=== PATIENT | male | born 1950 | race Caucasian/White ===

== ENCOUNTER → 2022-06-28 09:34 | Outpatient (CLI) | payer OTHER, SELFPAY ==
--- NOTE | 2022-06-28 10:45 | DI.MRI.S_ITS ---
PROCEDURE: MR LUMBAR SPINE WO CON INDICATIONS: lumbar radic Right L4.5 TECHNIQUE: Noncontrast sagittal T1 spin echo and T2 fast echo, sagittal STIR, and T2 fast spin echo through the lumbar spine. In cases with scoliosis, additional coronal T2 fast spin echo may be performed. COMPARISON: None. FINDINGS: Image quality: Excellent. Alignment and Curvature: There is normal bony alignment. Bone Marrow: Degenerative endplate changes. Modic type 1 endplate changes noted L4-5 Spinal Cord: Conus medullaris terminates at the L1 level. Visualized cord demonstrates normal signal and size. Paraspinous Soft Tissues: No paravertebral masses. T12-L1: Normal appearance. L1-L2: Disc space narrowing with circumferential disc bulge and hypertrophic facet joints results in mild central and moderate bilateral foraminal stenosis L2-L3: Disc space narrowing with circumferential disc bulge and hypertrophic facet joints results in moderate central stenosis. Moderate right and severe left foraminal stenosis L3-L4: Disc space narrowing with circumferential disc bulge, hypertrophic facet joints and ligamentum flavum laxity combined result in severe central stenosis. Moderate right and severe left foraminal stenosis L4-L5: Disc space narrowing, circumferential disc bulge and ligamentum flavum laxity combined result in severe central and severe bilateral foraminal stenosis. L5-S1: Disc space narrowing with circumferential disc bulge and hypertrophic facet joints results in mild central stenosis. Severe bilateral foraminal stenosis present. IMPRESSION: 1. Multilevel degenerative disc disease and arthropathy results in varying degrees of central and foraminal stenosis including severe central stenosis L3-4 and L4-5 Approved by: Servando Kay M.D. on 06/29/2022 at 7:56
== END ==
PROVIDERS: PCP Family Medicine; Referring Provider Physical Medicine & Rehabilitation; Visit Provider Physical Medicine & Rehabilitation
DX: M47.26 Other spondylosis with radiculopathy, lumbar region (principal); M51.16 Intervertebral disc disorders with radiculopathy, lumbar region; M48.061 Spinal stenosis, lumbar region without neurogenic claudication; M47.27 Other spondylosis with radiculopathy, lumbosacral region; M51.17 Intervertebral disc disorders with radiculopathy, lumbosacral region; M48.07 Spinal stenosis, lumbosacral region
CPT/HCPCS: 72148

== ENCOUNTER 2022-07-29 14:40 | Outpatient (CLI) | payer OTHER, SELFPAY ==
--- NOTE | 2022-07-29 14:41 | DI.RAD.S_ITS ---
PROCEDURE: PAIN L INTERLAMINAR/CAUDAL INJ INDICATIONS: SPONDYLOSIS COMPARISON: None. FINDINGS: Fluoroscopic spot filming was performed to verify placement of spinal needles at the right L4-L5 interlaminar space level(s), as labeled on the films. Appropriate location(s) of the needle tip(s) was confirmed by injection of iodinated contrast. IMPRESSION: Access needle tip at the right L4-L5 interlaminar space for translaminar epidural steroid injection. Dictated by: Chela Owen MD, PhD on 07/29/2022 at 16:28 Approved by: Chela Owen MD, PhD on 07/29/2022 at 16:28
[2022-07-29 14:50] VITALS: BP 139/78; PULSE 75; RESP 16; TEMP 36.5; O2SAT 94
[2022-07-29 16:01] VITALS: BP 132/71; PULSE 76; RESP 21; O2SAT 94
[2022-07-29] MEDS: BUPIVACAINE 0.25% (PF) VIAL 2 ML INJ (16:01)
[2022-07-29] MEDS: IOPAMIDOL 15 ML VIAL 3 ML INJ (16:01)
[2022-07-29] MEDS: DEXAMETHASONE 10 MG/ML VIAL 20 MG INJ (16:02)
[2022-07-29] MEDS: BETAMETHASONE 30 MG/5 ML MDV 6 MG INJ (16:02)
[2022-07-29 16:06] VITALS: BP 130/64; PULSE 77; RESP 21; O2SAT 95
--- NOTE | 2022-07-29 16:15 | P.PCN_ITS ---
Date/Time/Diagnoses Date of procedure: 07/29/22 Time of procedure: 16:15 Pre-procedure diagnosis: 1. HNP WITH RADICULAR FEATURES, 2. MULTILEVEL CENTRAL STENOSIS, Post-procedure diagnosis: same Procedure Notes Procedure: 1. FLUOROSCOPICALLY GUIDED CONTRAST CONTROLLED INTERLAMINAR EPIDURAL STEROID INJECTION -L4/5 Indications: Rolf is referred by Dr. Babcock for treatment of Bilateral Foraminal Stenosis R>L LE symptoms. Physician: Eric Barron Total Fluoroscopy time (seconds): 6 Total sedation minutes: 0 Complications: none Procedure in detail & Post-procedure care: FINDINGS Multilevel Central Spinal Stenosis with Nerve Root Compression DESCRIPTION OF PROCEDURE Fluoroscopically guided, contrast-controlled L4/5 translaminar epidural steroid injection. Following review of allergy and review of potential side effects and complications, including, but not necessarily limited to, infection, allergic reaction, local tissue breakdown, temporary as well as permanent nerve injury, paralysis, stroke and possible , the patient indicated that the patient understood and agreed to proceed. An informed consent document was signed by the patient, witnessed by a nurse, and placed in the patient's chart. Additionally, other treatment options including modalities, medications, and physical therapy were reviewed with the patient. After review of previous anaesthesic history and IV conscious sedation the patient was deemed safe to proceed with today?s procedure with IV conscious sedation as ASA class II designation. Safety time-out was performed to confirm patient ID, procedure to be performed and site of procedure. IV sedation was deemed unnecessary and thus was not administered by the RN after DO order, titrated to patient comfort during the course of the procedure while the patient remained responsive to all verbal commands In the prone position, following sterile prep and drape of the lumbar region, the L4/5 translaminar space was identified fluoroscopically. The skin was anesthetized via a 25-gauge, 1.5inch needle with 1% lidocaine solution. At this point, a 22-gauge short bevel spinal needle was atraumatically introduced and advanced under fluoroscopic guidance into the region of the L4/5 translaminar space. Depth was confirmed on lateral view. Radiological data, including multiple fluoroscopic views of the lumbar spine, reveal a spinal needle at the L4/5 translaminar space. Lateral views then show placement of the needle in the epidural space. Subsequent views show contrast material flowing superiorly and inferiorly in the epidural space. No vascular or intrathecal uptake is observed. At this point, using loss of resistance technique with saline and air, the epidural space was entered. This was confirmed following negative aspiration with injection of approximately 1.5cc of Isovue 200, showing excellent epidural flow without vascular or intrathecal uptake. At this point, 1cc of 1% lidocaine solution combined with 3cc or 20mg of dexamethasone and 6mg betamethasone was injected without incident. The patient tolerated the procedure well without signs or symptoms of complications prior to transfer to the recovery area continued monitoring without incident. The patient was then transferred to the recovery area where they were observed for an appropriate period of time after the injection. The patient reported a VAS score of 6 prior to the procedure and a post- procedure VAS of 0. POST OP INSTRUCTIONS The patient was provided a Pain Log to continue to record their response to the target-specific procedure prior to follow-up visit with their referring physician. Additionally, specific post-injection care instructions and a contact number to our office were provided if concerns arise regarding possible complications associated with the procedure are suspected.
[2022-07-29 16:18] VITALS: BP 139/75; PULSE 80; RESP 16; O2SAT 96
== END 2022-07-29 16:15 | disposition home or self-care (01) ==
LOC: RAD 14:40
PROVIDERS: PCP Family Medicine; Referring Provider Physical Medicine & Rehabilitation; Visit Provider Physical Medicine & Rehabilitation
DX: M54.16 Radiculopathy, lumbar region (principal); M48.061 Spinal stenosis, lumbar region without neurogenic claudication
CPT/HCPCS: 62323; J0702; J1100; J2250; J3490

== ENCOUNTER 2022-12-09 11:34 | Outpatient (CLI) | payer OTHER, SELFPAY ==
[2022-12-09] VITALS (8 sets, daily range): BP systolic 107–134; BP diastolic 55–68; PULSE 73–82; RESP 14–24; TEMP 37.4; O2SAT 96–98
--- NOTE | 2022-12-09 11:36 | DI.RAD.S_ITS ---
PROCEDURE: PAIN L INTERLAMINAR/CAUDAL INJ INDICATIONS: SPONDYLOSIS COMPARISON: Merged With [facility], XA, PAIN L INTERLAMINAR/CAUDAL INJ, 07/29/2022, 17:01. FINDINGS: Fluoroscopic spot filming was performed to verify placement of spinal needles at the L2-3 level(s), as labeled on the films. Appropriate location(s) of the needle tip(s) was confirmed by injection of iodinated contrast. IMPRESSION: Intraprocedural fluoroscopy was provided for guidance and anatomical localization. Please see the procedure report for further details. Dictated by: Bola Lomas M.D. on 12/09/2022 at 18:10 Approved by: Bola Lomas M.D. on 12/09/2022 at 18:10
[2022-12-09] MEDS: MIDAZOLAM 2 MG/2 ML VIAL 1 MG IV (14:02)
[2022-12-09] MEDS: DEXAMETHASONE 10 MG/ML VIAL 20 MG INJ (14:08)
[2022-12-09] MEDS: BETAMETHASONE 30 MG/5 ML MDV 6 MG INJ (14:09)
[2022-12-09] MEDS: BUPIVACAINE 0.25% (PF) VIAL 2 ML INJ (14:10)
[2022-12-09] MEDS: IOPAMIDOL 15 ML VIAL 3 ML INJ (14:10)
--- NOTE | 2022-12-29 16:04 | PM.PROC.IR.1 ---
Date/Time/Diagnoses Date of procedure: 12/09/22 Time of procedure: 14:00 Pre-procedure diagnosis: 1. HNP WITH RADICULAR FEATURES, 2. MULTILEVEL CENTRAL STENOSIS, Post-procedure diagnosis: same Procedure Notes Procedure: 1. FLUOROSCOPICALLY GUIDED CONTRAST CONTROLLED INTERLAMINAR EPIDURAL STEROID INJECTION - L2/3 Indications: Rolf is referred by Dr. Babcock for treatment of Bilateral Foraminal Stenosis L>R LE symptoms. Physician: Eric Barron Total Fluoroscopy time (seconds): 8 Total sedation minutes: 13 Complications: none Procedure in detail & Post-procedure care: FINDINGS Multilevel Central Spinal Stenosis with Nerve Root Compression DESCRIPTION OF PROCEDURE Fluoroscopically guided, contrast-controlled L2/3 translaminar epidural steroid injection. Following review of allergy and review of potential side effects and complications, including, but not necessarily limited to, infection, allergic reaction, local tissue breakdown, temporary as well as permanent nerve injury, paralysis, stroke and possible , the patient indicated that the patient understood and agreed to proceed. An informed consent document was signed by the patient, witnessed by a nurse, and placed in the patient's chart. Additionally, other treatment options including modalities, medications, and physical therapy were reviewed with the patient. After review of previous anaesthesic history and IV conscious sedation the patient was deemed safe to proceed with today?s procedure with IV conscious sedation as ASA class II designation. Safety time-out was performed to confirm patient ID, procedure to be performed and site of procedure. IV sedation was accomplished with a combination of 2mg Versed administered by the RN after DO order, titrated to patient comfort during the course of the procedure while the patient remained responsive to all verbal commands. In the prone position, following sterile prep and drape of the lumbar region,the L2/3 translaminar space was identified fluoroscopically. The skin was anesthetized via a 25-gauge, 1.5-inch needle with 1% lidocaine solution. At this point, a 22-gauge short bevel spinal needle was atraumatically introduced and advanced under fluoroscopic guidance into the region of the L2/3 translaminar space. Depth was confirmed on lateral view. Radiological data, including multiple fluoroscopic views of the lumbar spine, reveal a spinal needle at the L2/3 translaminar space. Lateral views then show placement of the needle in the epidural space. Subsequent views show contrast material flowing superiorly and inferiorly in the epidural space. No vascular or intrathecal uptake is observed. At this point, using loss of resistance technique with saline and air, the epidural space was entered. This was confirmed following negative aspiration with injection of approximately 1.5 cc of Isovue 200, showing excellent epidural flow without vascular or intrathecal uptake. At this point, 1 cc of 1% lidocaine solution combined with 3cc or 20mg of dexamethasone and 6mg of betamethasone was injected without incident. The patient tolerated the procedure well without signs or symptoms of complications prior to transfer to the recovery area continued monitoring without incident. The patient was then transferred to the recovery area where they were observed for an appropriate period of time after the injection. The patient reported a VAS score of 6 prior to the procedure and a post-procedure VAS of 0. POST OP INSTRUCTIONS The patient was provided a Pain Log to continue to record their response to the target-specific procedure prior to follow-up visit with their referring physician. Additionally, specific post-injection care instructions and a contact number to our office were provided if concerns arise regarding possible complications associated with the procedure are suspected.
== END 2022-12-09 14:35 | disposition home or self-care (01) ==
LOC: RAD 11:35
PROVIDERS: PCP Family Medicine; Referring Provider Physical Medicine & Rehabilitation; Visit Provider Physical Medicine & Rehabilitation
DX: M51.16 Intervertebral disc disorders with radiculopathy, lumbar region; M48.061 Spinal stenosis, lumbar region without neurogenic claudication
CPT/HCPCS: 62323; 99152; J0702; J1100; J2250; J3490

== ENCOUNTER → 2023-01-07 17:10 | Outpatient (CLI) | payer OTHER, SELFPAY ==
--- NOTE | 2023-01-07 17:18 | DI.RAD.S_ITS ---
PROCEDURE: XR LUMBAR SPINE MIN 4V INDICATIONS: LUMBAR PAIN TECHNIQUE: 5 views of the lumbar spine acquired, including flexion and extension views. COMPARISON: [facility] ([place]), CR, XR LUMBAR SPINE 2-3V, 01/20/2022, 14:05. FINDINGS: Bones: 5 nonrib-bearing vertebrae are present. Straightening of the normal lumbar lordosis without spondylolisthesis. Severe degenerative changes of the lumbar spine with intervertebral disc space narrowing, endplate sclerosis, osteophytosis and facet arthropathy mild dextrocurvature of the lumbar spine.. No vertebral body compression fractures. No suspicious bony lesions. Soft tissues: Overlying bowel gas pattern is normal. No suspicious soft tissue calcifications. Flexion/extension: There is normal range of motion, with preserved alignment. IMPRESSION: Severe degenerative changes of the lumbar spine. No dynamic instability on flexion and extension views. Dictated by: Mynor Main M.D. on 01/08/2023 at 8:28 Approved by: Mynor Main M.D. on 01/08/2023 at 8:30
== END ==
PROVIDERS: PCP Family Medicine; Referring Provider Physician Assistant; Visit Provider Physician Assistant
DX: M47.816 Spondylosis without myelopathy or radiculopathy, lumbar region (principal); M48.061 Spinal stenosis, lumbar region without neurogenic claudication; G57.02 Lesion of sciatic nerve, left lower limb; S39.012A Strain of muscle, fascia and tendon of lower back, initial encounter
CPT/HCPCS: 72110